=== PATIENT | male | born 1940 ===

== ENCOUNTER 2019-07-03 07:37 | Emergency (ER) | payer OTHER ==
--- NOTE | 2019-07-03 08:12 | ER ---
Nurse's Notes [facility] Name: Baljit Ramirez Age: 79 yrs Sex: Male : 1940 Arrival Date: 07/03/2019 Time: 07:39 Bed 13 Private MD: Diagnosis: Encounter for removal of sutures Presentation: 07/03 08:02 Presenting complaint: Patient states: Here to have sutures removed from above R eye. ss Sutures were placed 6 days ago. No drainage or redness noted. Patient denies pain. Transition of care: patient was not received from another setting of care. Onset of symptoms was June 27, 2019. Risk Assessment: Do you want to hurt yourself or someone else? Patient reports no desire to harm self or others. Initial Sepsis Screen: Does the patient meet any 2 criteria? No. Patient's initial sepsis screen is negative. Does the patient have a suspected source of infection? No. Patient's initial sepsis screen is negative. Care prior to arrival: None. 08:02 Method Of Arrival: Ambulatory ss 08:02 Acuity: JEFF 5 ss Historical: - Allergies: 08:03 Neosporin ([id number]); ss 08:03 PENICILLINS; ss - Immunization history:: Adult Immunizations up to date. - Social history:: Smoking status: Patient/guardian denies using tobacco. - Ebola Screening: : Patient denies exposure to infectious person Patient denies travel to an Ebola-affected area in the 21 days before illness onset. Screenin:06 Abuse screen: Denies threats or abuse. Denies injuries from another. Nutritional ss screening: No deficits noted. Tuberculosis screening: Never had TB. Fall Risk None identified. Assessment: 08:06 General: Appears in no apparent distress. comfortable, Behavior is calm, cooperative. ss Pain: Denies pain. Neuro: Level of Consciousness is awake, alert, obeys commands, Oriented to person, place, time, situation. Cardiovascular: Capillary refill < 3 seconds is brisk in bilateral fingers. Respiratory: Respiratory effort is even, unlabored. GI: No signs and/or symptoms were reported involving the gastrointestinal system. EENT: Oral mucosa is moist. Derm: Skin is pink, warm \T\ dry. normal. Musculoskeletal: Circulation, motion, and sensation intact. Range of motion: intact in all extremities. 08:22 Reassessment: PT D/C HOME AMBULATORY, DX WITH SUTURE REMOVAL. bp Vital Signs: 08:03 BP 119 / 73; Pulse 72; Resp 16; Temp 97.7(TE); Pulse Ox 95% on R/A; ss ED Course: 07:39 Patient arrived in ED. rg4 07:57 Saeed Garay PA is PHCP. jr8 07:57 Elvis Pak MD is Attending Physician. jr8 08:03 Triage completed. ss 08:03 Arm band placed on right wrist. ss 08:06 Brianne Suárez, RN is Primary Nurse. ss 08:06 Patient has correct armband on for positive identification. Bed in low position. Call ss light in reach. 08:10 No provider procedures requiring assistance completed. bp 08:10 Removal of Removed sutures from right eye Suture site is well healed Patient tolerated bp well. 08:22 Patient did not have IV access during this emergency room visit. bp Administered Medications: No medications were administered Outcome: 08:11 Discharge ordered by . jrKayla 08:23 Discharged to home ambulatory. bp 08:23 Condition: stable 08:23 Discharge instructions given to patient, Instructed on discharge instructions, follow up and referral plans. wound care, Demonstrated understanding of instructions, follow-up care, wound care. 08:24 Patient left the ED. bp Signatures: Brianne Suárez, DONNA RN Saeed Garay PA PA jrRadha Ruiz rg4 Milind Quiles RN RN bp
--- NOTE | 2019-07-03 08:12 | EDPHYS ---
Physician Documentation [facility] Name: Baljit Ramirez Age: 79 yrs Sex: Male : 1940 Arrival Date: 07/03/2019 Time: 07:39 Bed 13 Private MD: ED Physician Elvis Pak HPI: 07/03 09:18 This 79 yrs old Male presents to ER via Ambulatory with complaints of Suture Removal. jr8 09:18 The patient has sutures on the right eye. Previous treatment: The patient was initially jr8 treated 6 day(s) ago. Sutures/irving progress: The patient has no c/o's. The wound is well-healing with no redness, swelling, discharge, or dehiscence reported. The patient has not experienced similar symptoms in the past. The patient has not recently seen a physician. Historical: - Allergies: 08:03 Neosporin ([id number]); ss 08:03 PENICILLINS; ss - Immunization history:: Adult Immunizations up to date. - Social history:: Smoking status: Patient/guardian denies using tobacco. - Ebola Screening: : Patient denies exposure to infectious person Patient denies travel to an Ebola-affected area in the 21 days before illness onset. ROS: 09:18 Constitutional: Negative for fever, chills, and weight loss. jr8 09:18 Skin: Negative for cellulitis, erythema, swelling. 09:18 All other systems are negative. Exam: 09:18 Head/Face: Normocephalic, atraumatic. Eyes: Pupils equal round and reactive to light, jr8 extra-ocular motions intact. Lids and lashes normal. Conjunctiva and sclera are non-icteric and not injected. Cornea within normal limits. Periorbital areas with no swelling, redness, or edema. ENT: Nares patent. No nasal discharge, no septal abnormalities noted. Tympanic membranes are normal and external auditory canals are clear. Oropharynx with no redness, swelling, or masses, exudates, or evidence of obstruction, uvula midline. Mucous membranes moist. Cardiovascular: Regular rate and rhythm with a normal S1 and S2. No gallops, murmurs, or rubs. Normal PMI, no JVD. No pulse deficits. Respiratory: Lungs have equal breath sounds bilaterally, clear to auscultation and percussion. No rales, rhonchi or wheezes noted. No increased work of breathing, no retractions or nasal flaring. MS/ Extremity: Pulses equal, no cyanosis. Neurovascular intact. Full, normal range of motion. Neuro: Awake and alert, GCS 15, oriented to person, place, time, and situation. Cranial nerves II-XII grossly intact. Motor strength 5/5 in all extremities. Sensory grossly intact. Cerebellar exam normal. Normal gait. 09:18 Skin: Wound recheck: Suture laceration closure: the wound is healing well, the edges are well approximated, no evidence of dehiscence, no drainage, no erythema, no swelling. Vital Signs: 08:03 BP 119 / 73; Pulse 72; Resp 16; Temp 97.7(TE); Pulse Ox 95% on R/A; ss Procedures: 09:18 Suture/Staple removal: Removed 3 sutures, from right eye, site appears well healed, jr8 Patient tolerated well. MDM: 08:03 Patient medically screened. jr8 09:19 Data reviewed: vital signs, nurses notes, and as a result, I will discharge patient. jr8 Data interpreted: Pulse oximetry: on room air is 95 %. Interpretation: normal. Counseling: I had a detailed discussion with the patient and/or guardian regarding: the historical points, exam findings, and any diagnostic results supporting the discharge/admit diagnosis, the need for outpatient follow up, a family practitioner, to return to the emergency department if symptoms worsen or persist or if there are any questions or concerns that arise at home. Administered Medications: No medications were administered Disposition: 13:39 Co-signature as Attending Physician, Elvis Pak MD I agree with the assessment and kdr plan of care. Disposition: 07/03/19 08:11 Discharged to Home. Impression: Encounter for removal of sutures. - Condition is Stable. - Discharge Instructions: Suture Removal, Care After. - Medication Reconciliation Form, Thank You Letter, Antibiotic Education, Prescription Opioid Use form. - Follow up: Private Physician; When: As needed; Reason: Recheck today's complaints, Continuance of care, Re-evaluation by your physician. - Problem is new. - Symptoms are resolved. Signatures: Elvis Pak MD MD [facility] Brianne Suárez RN RN Saeed Garay PA PA jr8 Milind Quiles, RN RN bp Corrections: (The following items were deleted from the chart) 08:24 08:11 07/03/2019 08:11 Discharged to Home. Impression: Encounter for removal of bp sutures. Condition is Stable. Forms are Medication Reconciliation Form, Thank You Letter, Antibiotic Education, Prescription Opioid Use. Follow up: Private Physician; When: As needed; Reason: Recheck today's complaints, Continuance of care, Re-evaluation by your physician. Problem is new. Symptoms are resolved. jr8
[2019-07-03 11:04] VITALS: BP 119/73; TEMP 97.7; O2SAT 95
== END 2019-07-03 08:24 | disposition home or self-care (01) ==
LOC: ER 07:37
DX: Z48.02 Encounter for removal of sutures (principal); Z88.0 Allergy status to penicillin
CPT/HCPCS: 99281